=== PATIENT | female | born 1975 | race Caucasian/White ===

== ENCOUNTER 2019-03-17 22:52 | Emergency (ER) | payer OTHER ==
[~2019-03-17] VITALS: Ht 154.9 cm; Wt 74.8 kg
[2019-03-17 22:58] VITALS: BP 138/95
--- NOTE | 2019-03-17 22:58 | NUR ---
ARRIVAL PATIENT PRESENTS WITH COMPLAINTS OF "SPIDER BITES" TO LEFT UPPER THIGH AND LEFT LABIA FOR THE PAST TWO DAYS. PATIENT STATES THAT THEY ARE GETTING WORSE AND ARE PAINFUL. REPORTS THAT SHE HAS "PUT A PIN NEEDLE THROUGH THEM AND SQUEEZED SOME STUFF OUT". DENIES FEVER/CHILLS, N/V/D, OTHER COMPLAINTS. PATIENT AMBULATORY WITH STEADY GAIT. NO SIGNS OF DISTRESS NOTED. VSS. JALIL, DO NOTIFIED.
[2019-03-17 23:30] VITALS: BP 110/64
--- NOTE | 2019-03-17 23:54 | ER.PDOC ---
General Chief Complaint: Skin Rash/Abscess Stated Complaint: POSS SPIDER BITES Time seen by MD: 23:32 Source: patient Exam Limitations: no limitations History of Present Illness Initial Comments Pt noted a bump on her L vaginal labia 2 days ago, then another on her L thigh later that day. One on labia has drained some whitish/yellow material with squeezing, both are painful. Severity: moderate Location: LLE (and L vaginal labia) Quality: painful Identified Cause: no Prior symptoms/Treatment: Similar symptoms previous (on R side) Past Medical History Medical History: diabetes, hypertension Surgical History: other Family History Significant Family History: no pertinent family hx Social History Smoking: non-smoker Alcohol Use: none Drug Use: none Constitutional: no symptoms reported EENTM: no symptoms reported Respiratory: no symptoms reported Cardiovascular: no symptoms reported Gastrointestinal: no symptoms reported Genitourinary: no symptoms reported Musculoskeletal: see HPI Skin: see HPI Psychiatric/Neurological: no symptoms reported Endocrine: no symptoms reported All Other Systems: Reviewed and Negative Physical Exam General Appearance: alert, no distress Skin: tender indurated area (L medial thigh, proximal; L lower portion of outer labia; no active drainge, no fluctuance) Character: erythematous With: warmth, tenderness Extremities: nml ROM EENT: eyes nml inspection Neck: trachea midline Respiratory: no resp. distress CVS: tachycardia Abdomen: non-tender NEURO/PSYCH: motor nml, sensation nml Results/Orders Results/Orders Vital Signs Date Time Temp Pulse Resp B/P (MAP) Pulse Ox O2 Delivery O2 Flow Rate FiO2 03/17/19 23:09 98.8 117 18 03/17/19 23:09 98.8 117 18 99 Room Air 03/17/19 22:58 98.8 117 18 138/95 (109) 99 Room Air Progress Progress Pt chooses abx only with pain meds instead of I&D. Understands she may need to return if symptoms do not improve with meds only. Vaginal abscess is already draining, and l thigh induration is relatively small and may be a phlegmon only. Departure Time of Disposition: 00:22 Disposition: 01 HOME, SELF-CARE Impression: Primary Impression: Abscess, vagina Additional Impression: Abscess of left thigh Condition: Stable Referrals: PCP,UNKNOWN (PCP) PRIMARY CARE PROVIDER Additional Instructions: If no improvement after 48 hours, return to ER for drainage. Duration or Time Spent with Pa: 25 Problem Qualifiers DEEPIKA JIMENES DO Mar 17, 2019 23:53
[2019-03-18 00:30] VITALS: BP 144/87
[2019-03-18 00:37] VITALS: BP 138/95
== END 2019-03-18 00:34 | disposition home or self-care (01) ==
LOC: ER 22:52
DX: L02.416 Cutaneous abscess of left lower limb (principal); N76.0 Acute vaginitis; I10 Essential (primary) hypertension; E11.9 Type 2 diabetes mellitus without complications
CPT/HCPCS: 99283